=== PATIENT | female | born 2000 | race Two or more races ===

== ENCOUNTER 2021-05-30 18:19 | Emergency (ER) | payer OTHER ==
[~2021-05-30] VITALS: Ht 162.6 cm; Wt 90.7 kg
--- NOTE | 2021-05-30 18:38 | NUR ---
The patient isbibmother, c/o nausea vomiting since . Abdomen soft and non-distended. Will continue to monitor the patient.
[2021-05-30] MEDS ORDERED: IV NS 0.9% 1,000 ML BAG IV ONE ×2 (19:00→22:00)
--- NOTE | 2021-05-30 19:10 | NUR ---
STARTED IV LINE, BLOOD SPECIMEN COLLECTED AND SENT TO THE LAB. THE LINE IS SALINE LOCKED.
[2021-05-30 19:16] LABS: BASOPHILS % (AUTO) 0.5 % (0.0-2.0); EOSINOPHILS % (AUTO) 0.2 % (0.0-6.0); HEMATOCRIT 47 % (33-45); HEMOGLOBIN 15.6 g/dL (11.5-14.8); LYMPHOCYTES # (AUTO) 1.6 K/uL (0.8-4.8); LYMPHOCYTES % (AUTO) 22.9 % (20.0-44.0); MEAN CORPUSCULAR HGB CONC 34 g/dl (31.0-36.0); MEAN CORPUSCULAR VOLUME 81 fL (82-100); MONOCYTES # (AUTO) 0.5 K/uL (0.1-1.30); MONOCYTES % (AUTO) 6.7 % (2.0-12.0); NEUTROPHILS # (AUTO) 4.9 K/uL (1.8-8.9); NEUTROPHILS % (AUTO) 69.7 % (43.0-81.0); PLATELET COUNT (AUTO) 238 K/uL (150-450); RED BLOOD CELL COUNT(AUTO) 5.73 MIL/uL (4.0-5.2)
--- NOTE | 2021-05-30 19:24 | NUR ---
urine collected and sent to the lab
--- NOTE | 2021-05-30 19:24 | NUR ---
covid swab done and sent to the lab
[2021-05-30 19:32] LABS: BILIRUBIN,URINE MODERATE (NEGATIVE); COLOR,URINE YELLOW (YELLOW); LEUKOCYTE ESTERASE ,URINE Negative (NEGATIVE); NITRITE, URINE Negative (NEGATIVE); PROTEIN,URINE 100 mg/dl (NEGATIVE); UGLUCOSE Negative (NEGATIVE)
[2021-05-30 19:58] LABS: BACTERIA,URINE 3+ /HPF (None Seen)
[2021-05-30 19:59] LABS: RBC,URINE 0-2 /HPF (0-2); WBC,URINE 0-2 /HPF (0-3)
[2021-05-30 20:09] LABS: CALCIUM, SERUM 8.8 mg/dL (8.5-10.1); CREATININE 0.9 mg/dL (0.6-1.3); POTASSIUM 3.5 mmol/L (3.5-5.1)
[2021-05-30 20:14] LABS: ALBUMIN 3.9 g/dL (3.4-5.0); BILIRUBIN,DIRECT 0.2 mg/dL (0.0-0.2); BILIRUBIN,TOTAL 0.7 mg/dL (0.2-1.0); TOTAL PROTEIN, SERUM 8.7 g/dL (6.4-8.2)
[2021-05-30] MEDS ORDERED: ONDANSETRON HCL/PF 4 MG/2 ML VIAL ONE (21:56)
[2021-05-30] MEDS ORDERED: CEFTRIAXONE 1GM BAG (ER ONLY) 50 ML IV ONE (21:56)
[2021-05-30] MEDS ORDERED: ONDANSETRON HCL/PF 4 MG/2 ML VIAL IVP ONE (22:00)
[2021-05-30] MEDS ORDERED: CEFTRIAXONE 1GM BAG (ER ONLY) 1 GM/50 ML PIGGYBACK IV ONE (22:00)
[2021-05-30] MEDS ORDERED: SULF1TAB48 PO (22:30)
[2021-05-30] MEDS ORDERED: ONDA4TAB5 PO (22:31)
[2021-05-30 22:54] VITALS: BP 120/77
--- NOTE | 2021-05-30 22:54 | NUR ---
Patient discharged to home in stable condition. Written and verbal after care instructions given. Patient verbalizes understanding of instruction.
== END 2021-05-30 22:54 | disposition home or self-care (01) ==
LOC: ER 18:24
DX: N39.0 Urinary tract infection, site not specified (principal); U07.1 COVID-19; J45.909 Unspecified asthma, uncomplicated
CPT/HCPCS: 36415; 71046 ×2; 80048; 80076; 81001; 84703; 85025; 87086; 87426; 96361; 96365; 96375; 99285; C9803 ×2; J0696; J2405; J7030; U0003

== ENCOUNTER 2023-03-19 16:13 | Emergency (ER) | payer OTHER ==
[~2023-03-19] VITALS: Ht 165.1 cm; Wt 114.8 kg
[~2023-03-19 16:13] MED LIST: ONDA4TAB5 PO; SULF1TAB48 PO
[2023-03-19] MEDS ORDERED: IV NS 0.9% 1,000 ML BAG IV ONE (17:30)
[2023-03-19] MEDS ORDERED: KETOROLAC TROMETHAMINE INJ 30 MG/ML VIAL IV ONE (17:30)
[2023-03-19 17:32] LABS: APPEARANCE,URINE CLEAR (CLEAR); BILIRUBIN,URINE NEGATIVE (NEGATIVE); BLOOD, URINE 3+ Ery/uL (NEGATIVE); COLOR,URINE YELLOW (YELLOW); KETONES,URINE TRACE mg/dL (NEGATIVE); LEUKOCYTE ESTERASE ,URINE NEGATIVE (NEGATIVE); NITRITE, URINE NEGATIVE (NEGATIVE); PH,URINE 5.5 (5.0-8.0); PREGNANCY TEST URINE QUAL NEGATIVE (NEGATIVE); PROTEIN,URINE TRACE mg/dl (NEGATIVE); UGLUCOSE NEGATIVE (NEGATIVE)
[2023-03-19 17:35] LABS: ADD URINE CULTURE YES; BACTERIA,URINE 2+ /HPF (None Seen); MUCUS,URINE Moderate /LPF (None Seen); RBC,URINE 51-80 /HPF (0-2)
[2023-03-19] MEDS ORDERED: KETOROLAC TROMETHAMINE INJ 30 MG/ML VIAL ONE (17:56)
[2023-03-19 18:06] LABS: BASOPHILS # (AUTO) 0.1 K/uL (0.0-0.2); BASOPHILS % (AUTO) 0.8 % (0.0-2.0); EOSINOPHILS # (AUTO) 0.1 K/uL (0.0-0.7); EOSINOPHILS % (AUTO) 0.7 % (0.0-6.0); HEMATOCRIT 44 % (33-45); HEMOGLOBIN 14.6 g/dL (11.5-14.8); LYMPHOCYTES # (AUTO) 2.3 K/uL (0.8-4.8); LYMPHOCYTES % (AUTO) 15.8 % (20.0-44.0); MEAN CORPUSCULAR HEMOGLOBIN 27 PG (26.0-33.0); MEAN CORPUSCULAR HGB CONC 33 g/dl (31.0-36.0); MEAN CORPUSCULAR VOLUME 81 fL (82-100); MONOCYTES # (AUTO) 0.9 K/uL (0.1-1.30); MONOCYTES % (AUTO) 6.3 % (2.0-12.0); NEUTROPHILS # (AUTO) 11.1 K/uL (1.8-8.9); NEUTROPHILS % (AUTO) 76.4 % (43.0-81.0); PLATELET COUNT (AUTO) 394 K/uL (150-450); RED BLOOD CELL COUNT(AUTO) 5.38 MIL/uL (4.0-5.2); RED CELL DISTRIBUTION WIDTH 13.8 % (11.5-15.0); WHITE BLOOD COUNT (AUTO) 14.5 K/uL (4.3-11.0)
[2023-03-19 18:20] LABS: CALCIUM, SERUM 9.4 mg/dL (8.5-10.1); CREATININE 0.8 mg/dL (0.6-1.3); POTASSIUM 3.8 mmol/L (3.5-5.1)
[2023-03-19 18:25] LABS: ALBUMIN 4.1 g/dL (3.4-5.0); BILIRUBIN,DIRECT 0.2 mg/dL (0.0-0.2); BILIRUBIN,TOTAL 0.8 mg/dL (0.2-1.0); TOTAL PROTEIN, SERUM 8.5 g/dL (6.4-8.2)
[2023-03-19] MEDS ORDERED: CEPH500T PO (19:01)
[2023-03-19] MEDS ORDERED: IBUP-1953 PO (19:01)
[2023-03-19] MEDS ORDERED: HYDR-3972 PO (19:01)
[2023-03-19] MEDS ORDERED: TAMS-12 PO (19:01)
[2023-03-19 19:09] VITALS: BP 128/84; TEMP 98.7; O2SAT 98
== END 2023-03-19 19:10 | disposition home or self-care (01) ==
LOC: ER 16:31
DX: N20.1 Calculus of ureter (principal); N23 Unspecified renal colic; Z60.2 Problems related to living alone
CPT/HCPCS: 99285; 74176; 96374; 96361; 85025; 80048; 87086; 83690; 80076; 84703; 81001; 36415; J1885; J7030